=== PATIENT | female | born 1975 | race Hispanic/Latino ===

== ENCOUNTER 2021-12-29 15:59 | Emergency (ER) | payer OTHER ==
[~2021-12-29] VITALS: Ht 157.5 cm; Wt 54.1 kg
[2021-12-29] VITALS (8 sets, daily range): BP systolic 103–130; BP diastolic 48–69
[2021-12-29] MEDS ORDERED: NOVOLIN 70/30 SC (16:58)
[2021-12-29] MEDS ORDERED: KEFLEX500 MG PO (19:02)
[2021-12-29] MEDS ORDERED: FLEXERIL5 M1 PO (19:02)
[2021-12-29] MEDS ORDERED: BACTROBAN TOP (19:02)
[2021-12-29] MEDS ORDERED: NAPROXEN500 MG PO (19:02)
== END 2021-12-29 19:20 | disposition home or self-care (01) ==
LOC: ED 15:59
DX: S16.1XXA Strain of muscle, fascia and tendon at neck level, initial encounter (principal); X58.XXXA Exposure to other specified factors, initial encounter; L03.011 Cellulitis of right finger

== ENCOUNTER 2022-07-03 20:35 | Emergency (ER) | payer OTHER ==
[~2022-07-03] VITALS: Ht 157.5 cm; Wt 55.0 kg
[2022-07-03] VITALS (8 sets, daily range): BP systolic 111–138; BP diastolic 49–78
[~2022-07-03 20:35] MED LIST: BACTROBAN TOP; FLEXERIL5 M1 PO; KEFLEX500 MG PO; NAPROXEN500 MG PO; NOVOLIN 70/30 SC
[2022-07-03] MEDS ORDERED: DIFLUCAN150 MG PO (22:04)
[2022-07-03 22:13] LABS: BASO% 0.4 % (0-3); HEMATOCRIT 37.2 % (37.0-47.0); HEMOGLOBIN 12.1 g/dl (12.0-16.0); IMMATURE GRANULOCYTES 0.1 % (0.0-5.0); LYMPH% 22.7 % (15-41); MEAN CELL VOLUME 80.9 fL CALC (80.0-100.0); MEAN CORPUSCULAR HGB 26.3 pG CALC (26.0-32.0); MEAN CORPUSCULAR HGB CONC 32.5 g/dL CAL (32.0-36.0); MONO% 7.6 % (2-13); NEUT# 6.71 thou/uL (2.00-7.15); NEUT% 68.2 % (42-76); RED BLOOD COUNT 4.6 mill/uL (4.20-5.60); RED CELL DISTRI WIDTH 13.3 % (11.5-15.5); URINE BILIRUBIN - DIPSTICK NEGATIVE (NEGATIVE); URINE BLOOD DIPSTICK SMALL (NEGATIVE); URINE COLOR YELLOW; URINE GLUCOSE - DIPSTICK >=1000 mg/dL (NEGATIVE); URINE KETONE NEGATIVE (NEGATIVE); URINE LEUK ESTERASE TRACE (NEGATIVE); URINE PROTEIN - DIPSTICK NEGATIVE (NEG-TRACE); URINE SPECIFIC GRAVITY 1.015; URINE UROBILINOGEN - DIPSTICK 0.2 E.U./dL (0.2)
[2022-07-03 22:15] LABS: URINE NITRITE - DIPSTICK POSITIVE (Negative)
[2022-07-03 22:25] LABS: URINE BACTERIA MODERATE hpf; URINE RBC 0-2 RBC/hpf (0-5); URINE SQUAMOUS EPITHELIAL CELL RARE EPI/hpf (0-FEW)
[2022-07-03 22:32] LABS: ALBUMIN 4.1 g/dL (3.2-5.0); ALKALINE PHOSPHATASE 95 u/l (38-126); ANION GAP 12 (6-22 (CALC)); BILIRUBIN, TOTAL 0.3 mg/dL (0.02-1.3); BUN 8 mg/dL (7-17); BUN/CREATININE RATIO 18 (12-20 (CALC)); CARBON DIOXIDE 25 mmol/l (22-30); CHLORIDE 98 mmol/l (95-108); CREATININE 0.5 mg/dL (0.5-1.0); GFR FOR AFR.AMER. > 60 ML/MIN (>=60 (CALC)); GFR OTHER RACES > 60 ML/MIN (>=60 (CALC)); SGOT/AST 27 u/l (14-36); SODIUM 131 mmol/l (137-146); TOTAL PROTEIN 7.8 g/dL (6.3-8.2)
[2022-07-03 23:00] LABS: POTASSIUM 3.7 mmol/l (3.5-5.1)
[2022-07-04] VITALS (13 sets, daily range): BP systolic 98–124; BP diastolic 51–68
[2022-07-04] MEDS ORDERED: BACTRIM DS1 TAB PO (02:58)
== END 2022-07-04 03:13 | disposition home or self-care (01) ==
LOC: ED 20:35
PROVIDERS: Family Medicine
DX: N76.0 Acute vaginitis (principal); N39.0 Urinary tract infection, site not specified; S39.012A Strain of muscle, fascia and tendon of lower back, initial encounter; B96.20 Unspecified Escherichia coli [E. coli] as the cause of diseases classified elsewhere; X58.XXXA Exposure to other specified factors, initial encounter
CPT/HCPCS: Q9967